=== PATIENT | female | born 1995 | race Caucasian/White ===

== ENCOUNTER 2016-07-26 22:37 | Emergency (ER) | payer MEDICAID ==
[~2016-07-26] VITALS: Ht 160 cm; Wt 60.3 kg
[2016-07-26 22:40] VITALS: BP 103/62
--- NOTE | 2016-07-26 23:12 | NUR ---
Patient ambulated to bed 07.
[2016-07-26] MEDS ORDERED: NACL 0.9% 1,000 ML IV ONE (23:20)
[2016-07-26] MEDS ORDERED: ONDANSETRON 4 MG/2 ML VIAL IVP ONE (23:20)
--- NOTE | 2016-07-26 23:20 | NUR ---
Dr. Lopez evaluating patient at bedside.
--- NOTE | 2016-07-26 23:20 | NUR ---
21 Y/O F W/C/O ABD PAIN, N/V/D, FEVER, CHILLS AND SOB X 2 DAYS. NO S/S OF DISTRESS NOTED. VSS. ER MADE AWARE.
[2016-07-26 23:56] LABS: HEMOGLOBIN 15.1 g/dL (12.0-16.0); MEAN CORPUSCULAR HEMOGLOBIN 27 pg (27-31); MEAN CORPUSCULAR HGB CONC 33 g/dL (33-37); MEAN CORPUSCULAR VOLUME 82 fL (80-94); PLATELET COUNT (AUTO) 237 K/uL (140-450); RED CELL DISTRIBUTION WIDTH 13.9 % (11.6-13.7); WHITE BLOOD COUNT (AUTO) 11.7 K/uL (4.5-11.0)
[2016-07-27 00:01] LABS: ALBUMIN 4.7 g/dL (3.4-5.0); ANION GAP 15.6 (8-16); CARBON DIOXIDE 22.5 mmol/L (21-32); CREATININE 0.8 mg/dL (0.6-1.3); POTASSIUM 4.1 mmol/L (3.5-5.1); TOTAL BILIRUBIN 0.5 mg/dL (0.0-1.0); TOTAL PROTEIN, SERUM 9.1 g/dL (6.4-8.2)
[2016-07-27 00:16] LABS: BAND % (MANUAL) 8 % (0-8); LYMPHOCYTES % (MANUAL) 4 % (20-46); MONOCYTES % (MANUAL) 1 % (5-12); NEUTROPHILS % (MANUAL) 87 (43-65)
[2016-07-27 00:20] LABS: INR 1.1 (0.8-1.2); PARTIAL THROMBOPLASTIN TIME 25.9 secs (22-35.6); PROTHROMBIN TIME 10.3 secs (10.8-13.4)
[2016-07-27 00:49] VITALS: BP 104/59
--- NOTE | 2016-07-27 00:49 | NUR ---
Patient discharged with v/s stable. Written and verbal after care instructions given and explained. Patient alert, oriented and verbalized understanding of instructions. Ambulatory with steady gait. All questions addressed prior to discharge. ID band removed. Patient advised to follow up with PMD OR RETURN TO ER IF CONDITION WORSENS. Rx of ZOFRAN given. Patient educated on indication of medication including possible reaction and side effects. Opportunity to ask questions provided and answered.
== END 2016-07-27 00:49 | disposition home or self-care (01) ==
LOC: MED 22:37
DX: A08.4 Viral intestinal infection, unspecified (principal)
CPT/HCPCS: 36415; 80053; 81002; 81025; 85025; 85610; 85730; 93005; 96361; 96374; 99285; J2405; J7030